=== PATIENT | female | born 1940 | race Caucasian/White ===

== ENCOUNTER 2021-10-02 10:06 | Emergency (ER) | payer OTHER ==
[2021-10-02 10:15] VITALS: BP 155/59; PULSE 68; TEMP 97.4; BMI 18.8
== END 2021-10-02 11:35 | disposition home or self-care (01) ==
LOC: JER 10:06
PROC: 2W3MX1Z Immobilization of Left Lower Extremity using Splint (ICD-10-PCS; principal; 2021-10-02)
DX: S99.192A Other physeal fracture of left metatarsal, initial encounter for closed fracture (principal); W01.0XXA Fall on same level from slipping, tripping and stumbling without subsequent striking against object, initial encounter
CPT/HCPCS: 73610-TC-LT-FY; 73630-TC-LT; 99283-25